=== PATIENT | female | born 1975 | race Two or more races ===

== ENCOUNTER → 2024-11-16 | Outpatient (CLI) | payer MEDICAID, SELFPAY ==
--- NOTE | 2024-11-16 09:30 | XR_ITS ---
Examination: Breast ultrasound, unilateral, right complete Date and time of exam: November 16, 2024 1101 hours INDICATIONS: Palpable lump right breast this month Technique: Real-time gonzalez scale ultrasonographic imaging performed right breast including all 4 quadrants as well as nipple retroareolar and axillary region. Findings: 2:00 nodule circumscribed 18 x 14 mm 7:00 nodule circumscribed 6 x 7 mm 9:00 cyst 7 x 7 mm 10:00 cyst 6 x 5 mm Retroareolar cyst 9 x 9 mm IMPRESSION: BI-RADS Category 3: Probably benign findings Six-month right breast sonogram follow-up is needed to document stability of multiple solid nodules described above
--- NOTE | 2024-11-16 10:30 | XR_ITS ---
Examination: Diagnostic digital mammography, unilateral, right Computer aided detection 3-D breast Tomosynthesis, unilateral Date and time of exam: November 16, 2024 1137 hours INDICATIONS: Outside mammogram September 05, 2024 15 mm mass lower inner quadrant right breast Technique: Nonmagnified MLO, CC views of the right breast have been obtained, reconstructed from 3-D Tomosynthesis images. R2 computer aided detection program utilized for evaluation of suspicious masses and/or abnormal calcifications. 3-D Tomosynthesis images obtained. Findings: The breast is heterogeneously dense, which may obscure small masses 18 mm nodule is confirmed inner slightly lower right breast poorly circumscribed Impression: BI-RADS category 3: Probably benign findings Six-month right mammogram follow-up is needed to document stability of 18 mm nodule described above
== END | disposition home or self-care (01) ==
PROVIDERS: PCP Physician Assistant; Referring Provider Physician Assistant; Visit Provider Physician Assistant
DX: N63.12 Unspecified lump in the right breast, upper inner quadrant (principal); N63.13 Unspecified lump in the right breast, lower outer quadrant; N60.11 Diffuse cystic mastopathy of right breast; R92.331 Mammographic heterogeneous density, right breast
CPT/HCPCS: 76641; 77061; 77065; G0279